=== PATIENT | female | born 1995 | race Caucasian/White ===

== ENCOUNTER 2018-04-21 23:57 | Emergency (ER) | payer OTHER ==
--- NOTE | 2018-04-22 00:09 | EDPHY ---
H & P Stated Complaint: Anxiety, increasing chest pain since afternoon, recent breakup Time Seen by Provider: 04/22/18 00:09 HPI/ROS: HPI CHIEF COMPLAINT: Anxiety and chest tightness. HISTORY OF PRESENT ILLNESS: 23 year female suffers from anxiety, presents emergency room stating she had a very stressful day today and had an anxiety attack earlier. She noticed around 8 o'clock this evening or approximately 4 hr ago she developed some chest tightness. She states this caused her anxiety to get worse. She decided come the emergency room to be evaluated. Denies pleuritic pain, denies significant shortness of breath. Main complaint is anxiety and chest tightness. Denies cough, denies fever, denies recent illness , denies pleuritic pain. Denies hemoptysis. Denies syncope. Past Medical History: Anxiety and depression Past Surgical History: Tonsillectomy Social History: Denies drugs alcohol tobacco. Family History: Noncontributory ROS REVIEW OF SYSTEMS: 10 Systems were reviewed and negative with the exception of the elements mentioned in the history of present illness. Exam Constitutional somewhat anxious, triage nursing summary reviewed, vital signs reviewed, awake/alert. Eyes normal conjunctivae and sclera, EOMI, PERRLA. HENT normal inspection, atraumatic, moist mucus membranes, no epistaxis, neck supple/ no meningismus, no raccoon eyes. Respiratory clear to auscultation bilaterally, normal breath sounds, no respiratory distress, no wheezing. Cardiovascular rate normal, regular rhythm, no murmur, no edema, distal pulses normal. Gastrointestinal soft, non-tender, no rebound, no guarding, normal bowel sounds, no distension, no pulsatile mass. Genitourinary no CVA tenderness. Musculoskeletal no midline vertebral tenderness, full range of motion, no calf swelling, no tenderness of extremities, no meningismus, good pulses, neurovascularly intact. Skin pink, warm, & dry, no rash, skin atraumatic. Neurologic awake, alert and oriented x 3, AAOx3, moves all 4 extremities equally, motor intact, sensory intact, CN II-XII intact, normal cerebellar, normal vision, normal speech. Psychiatric anxious Heme/Lymph/Immune no lymphadenopathy. Differential diagnosis includes but is not limited to: Anxiety attack, panic attack ACS, atypical chest pain, pneumothorax, pneumonia, pulmonary embolism, aortic dissection, congestive heart failure, tumor, musculoskeletal pain, esophageal pain, GERD, peptic ulcer disease, pancreatitis Medical Decision Making: Plan for this patient IV establishment with IV fluid bolus, 0.5 mg IV Ativan for anxiety, EKG, chest x-ray, basic blood work, troponin, electrolytes. D-dimer. Re-evaluate. Re-evaluation: EKG interpretation by me on record in [employer] system. Impression time of EKG 0011: Normal sinus rhythm rate of 70 without any signs of acute ischemia. No ST elevation or ST depression no significant T-wave abnormalities. 0323AM: Patient re-evaluated this time resting comfortably no acute distress. She has been sleeping. Denies chest pain shortness of breath. Vital signs are stable. No hypoxia. No pleuritic pain. Patient's EKG is nonischemic. Chest x-ray is reviewed is unremarkable Troponin noted to be normal. D-dimer noted to be normal Clinically I believe this to be anxiety. She is feeling better after Ativan. Resting comfortably. Will allow her to go home Return precautions discussed with her. Return if worsening chest pain, shortness of breath, or not feeling well. Source: Patient - Personal History LMP (Females 10-55): 8-14 Days Ago Current Tetanus Diphtheria and Acellular Pertussis (TDAP): Yes - Medical/Surgical History Hx Asthma: No Hx Chronic Respiratory Disease: No Hx Diabetes: No Hx Cardiac Disease: No Hx Renal Disease: No Hx Cirrhosis: No Hx Alcoholism: No Hx HIV/AIDS: No Hx Splenectomy or Spleen Trauma: No Other PMH: Anxiety - Social History Smoking Status: Never smoked Constitutional: Initial Vital Signs Temperature (C) 36.8 C 04/22/18 00:00 Heart Rate 87 04/22/18 00:00 Respiratory Rate 18 04/22/18 00:00 Blood Pressure 114/65 04/22/18 00:00 O2 Sat (%) 99 04/22/18 00:00 O2 Delivery Mode Room Air Allergies/Adverse Reactions: No Known Allergies Allergy (Unverified 04/21/18 23:59) Home Medications: Medication Instructions Recorded buPROPion 04/22/18 Medical Decision Making - Data Points Laboratory Results: Laboratory Results 04/22/18 00:17 04/22/18 00:17 04/22/18 04/22/18 04/22/18 01:42 00: 00:17 WBC RBC Hgb Hct MCV MCH MCHC RDW Plt Count MPV Neut % (Auto) Lymph % (Auto) Overton % (Auto) Eos % (Auto) Baso % (Auto) Nucleat RBC Rel Count Absolute Neuts (auto) Absolute Lymphs (auto) Absolute Monos (auto) Absolute Eos (auto) Absolute Basos (auto) Absolute Nucleated RBC Immature Gran % Immature Gran # D-Dimer < 0.27 ug/mLFEU ug/mLFEU (0.00-0.50) Sodium 139 mEq/L mEq/L (135-145) Potassium 3.4 mEq/L mEq/L (3.3-5.0) Chloride 106 mEq/L mEq/L (97-110) Carbon Dioxide 22 mEq/l mEq/l (22-31) Anion Gap 11 mEq/L mEq/L (6-14) BUN 10 mg/dL mg/dL (7-23) Creatinine 0.6 mg/dL mg/dL (0.6-1.0) Estimated GFR > 60 Glucose 88 mg/dL mg/dL (70-100) Calcium 9.7 mg/dL mg/dL (8.5-10.4) Magnesium 1.8 mg/dL mg/dL (1.6-2.3) Total Bilirubin 0.6 mg/dL mg/dL (0.1-1.4) Conjugated Bilirubin 0.2 mg/dL mg/dL (0.0-0.5) Unconjugated Bilirubin 0.4 mg/dL mg/dL (0.0-1.1) AST 30 IU/L IU/L (14-46) ALT 27 IU/L IU/L (9-52) Alkaline Phosphatase 50 IU/L IU/L (38-126) POC Troponin I 0.01 ng/mL ng/mL (0.00-0.08) NT-Pro-B Natriuret Pep 97 pg/mL pg/mL (0-125) Total Protein 6.8 g/dL g/dL (6.3-8.2) Albumin 4.1 g/dL g/dL (3.5-5.0) Lipase 85 IU/L IU/L (23-300) 04/22/18 00:17 WBC 8.25 10^3/uL 10^3/uL (3.80-9.50) RBC 3.85 10^6/uL L 10^6/uL (4.18-5.33) Hgb 11.6 g/dL L g/dL (12.6-16.3) Hct 33.3 % L % (38.0-47.0) MCV 86.5 fL fL (81.5-99.8) MCH 30.1 pg pg (27.9-34.1) MCHC 34.8 g/dL g/dL (32.4-36.7) RDW 12.8 % % (11.5-15.2) Plt Count 194 10^3/uL 10^3/uL (150-400) MPV 9.8 fL fL (8.7-11.7) Neut % (Auto) 57.3 % % (39.3-74.2) Lymph % (Auto) 31.9 % % (15.0-45.0) Overton % (Auto) 8.6 % % (4.5-13.0) Eos % (Auto) 1.2 % % (0.6-7.6) Baso % (Auto) 0.8 % % (0.3-1.7) Nucleat RBC Rel Count 0.0 % % (0.0-0.2) Absolute Neuts (auto) 4.72 10^3/uL 10^3/uL (1.70-6.50) Absolute Lymphs (auto) 2.63 10^3/uL 10^3/uL (1.00-3.00) Absolute Monos (auto) 0.71 10^3/uL 10^3/uL (0.30-0.80) Absolute Eos (auto) 0.10 10^3/uL 10^3/uL (0.03-0.40) Absolute Basos (auto) 0.07 10^3/uL 10^3/uL (0.02-0.10) Absolute Nucleated RBC 0.00 10^3/uL 10^3/uL (0-0.01) Immature Gran % 0.2 % % (0.0-1.1) Immature Gran # 0.02 10^3/uL 10^3/uL (0.00-0.10) D-Dimer Sodium Potassium Chloride Carbon Dioxide Anion Gap BUN Creatinine Estimated GFR Glucose Calcium Magnesium Total Bilirubin Conjugated Bilirubin Unconjugated Bilirubin AST ALT Alkaline Phosphatase POC Troponin I NT-Pro-B Natriuret Pep Total Protein Albumin Lipase Medications Given: Discontinued Medications Sodium Chloride (Ns) 1,000 mls @ 0 mls/hr IV EDNOW ONE; Wide Open PRN Reason: Protocol Stop: 04/22/18 00:13 Last Admin: 04/22/18 00:23 Dose: 1,000 mls Lorazepam (Ativan Injection) 0.5 mg IVP EDNOW ONE Stop: 04/22/18 00:13 Last Admin: 04/22/18 00:23 Dose: 0.5 mg Point of Care Test Results: Chemistry 04/22/18 01:42 POC Troponin I 0.01 ng/mL ng/mL (0.00-0.08) Departure - Departure Disposition: Home, Routine, Self-Care Clinical Impression: Anxiety Condition: Good Instructions: Anxiety (ED) Referrals: NONE *PRIMARY CARE P,. [Primary Care Provider] - As per Instructions [facility] [Clinic] - As per Instructions
[2018-04-22] MEDS ORDERED: LORazepam 2 MG/ML INJ IVP ONE (00:12)
[2018-04-22] MEDS ORDERED: NS 1,000 ML IV ONE (00:12)
[2018-04-22 00:24] LABS: PLATELET COUNT 194 10^3/uL (150-400)
[2018-04-22 00:25] VITALS: BP 110/60
--- NOTE | 2018-04-23 23:58 | CPEKG ---
Test Reason : OPEN Blood Pressure : / mmHG Vent. Rate : 070 BPM Atrial Rate : 069 BPM P-R Int : 169 ms QRS Dur : 093 ms QT Int : 386 ms P-R-T Axes : 046 074 025 degrees QTc Int : 417 ms Sinus arrhythmia Confirmed by Faizan Alegria ([id number]) on 04/23/2018 11:57:52 PM Also confirmed by Faizan Alegria ([id number]) on 04/23/2018 11:58:04 PM Referred By: Confirmed By:Faizan Alegria
== END 2018-04-22 03:28 | disposition home or self-care (01) ==
DX: F41.9 Anxiety disorder, unspecified (principal); R07.89 Other chest pain; E86.9 Volume depletion, unspecified
CPT/HCPCS: 84484-PO; 96374; J2060